=== PATIENT | female | born 1980 | race Caucasian/White ===

== ENCOUNTER → 2016-08-27 | Outpatient (CLI) | payer OTHER ==
[~2016-08-27] MED LIST: AMOXICILLIN500 MG PO; B12,B-12,B 12500 MC1 PO; BUSPAR5 MG PO; CIPROFLOXACIN500 MG PO; CLINDAMYCIN HC300 MG PO; CYCLOBENZAPRINE10 MG PO; CYCLOBENZAPRINE5 M3 PO; DARVOCET N 1001 TAB PO; DIFLUCAN150 MG PO; FLAGYL500 MG PO; IBU800 M1 PO; KEFLEX500 M1 PO; LAMOTRIGINE100 MG PO; LIDEX0.05% T; MOOD STABILIZER; MOTRIN600 MG PO; MOTRIN800 MG PO; NAPROSYN500 MG PO; NORCO 325 MG-51 TAB PO; PARAFON FORTE500 MG PO; PERCOCET 325 MG1 TA2 PO; PHENERGAN W/DM120 ML PO; PREDNICOT10 MG PO; PREDNICOT20 MG PO; SEPTRA DS 800 M1 TAB PO; TESSALON PERLE100 M1 PO; TYLENOL W/CODEI1 TA7 PO; VICODIN HP 6601 TAB PO; VISTARIL25 M1 PO; ZANTAC150 MG PO; ZITHROMAX Z PA250 MG PO; ZOFRAN4 MG PO; ZOLOFT100 MG PO
== END | disposition home or self-care (01) ==
LOC: US 17:59
DX: K76.0 Fatty (change of) liver, not elsewhere classified (principal)

== ENCOUNTER 2019-11-24 12:42 | Emergency (ER) | payer OTHER ==
[~2019-11-24] VITALS: Ht 157.4 cm; Wt 127.0 kg
[2019-11-24] MEDS ORDERED: Motrin,Rufen800 MG PO (16:16)
[2019-11-24] MEDS ORDERED: CYCLOBENZAPRINE5 M3 PO (16:16)
== END 2019-11-24 16:19 | disposition home or self-care (01) ==
LOC: ED 12:42
DX: M54.16 Radiculopathy, lumbar region (principal); Z88.8 Allergy status to other drugs, medicaments and biological substances; Z79.899 Other long term (current) drug therapy

== ENCOUNTER 2020-11-20 02:02 | Emergency (ER) | payer OTHER ==
[~2020-11-20 02:02] MED LIST changes: +Motrin,Rufen800 MG PO
== END 2020-11-20 04:09 | disposition home or self-care (01) ==
LOC: ED 02:02
DX: I83.891 Varicose veins of right lower extremity with other complications (principal); Z79.2 Long term (current) use of antibiotics; Z88.1 Allergy status to other antibiotic agents; Z79.899 Other long term (current) drug therapy; Z90.711 Acquired absence of uterus with remaining cervical stump; Z98.890 Other specified postprocedural states; Z87.891 Personal history of nicotine dependence

== ENCOUNTER 2021-05-16 21:23 | Emergency (ER) | payer OTHER ==
[~2021-05-16] VITALS: Ht 160 cm
[2021-05-16 22:21] LABS: BASO % 0.5 % (0.0-1.0); EOS # 0.4 10*3/uL (0.0-0.4); EOS % 5.7 % (1.0-4.0); HEMATOCRIT 40.1 % (37.0-47.0); LYMPH # 2.9 10*3/uL (1.3-4.4); LYMPH % 44.2 % (27.0-41.0); MEAN CELL VOLUME 90.3 fl (81.0-99.0); MEAN CORPUSCULAR HGB CONC 33.2 g/dl (33.0-37.0); MEAN PLATELET VOLUME 9.1 fl (9.6-12.3); MONO # 0.5 10*3/uL (0.1-1.0); MONO % 7.2 % (3.0-9.0); NEUT # 2.8 10*3/uL (2.3-7.9); NEUT % 42.2 % (47.0-73.0); PLATELET COUNT AUTOMATED 311 10*3/uL (130-400); RED BLOOD COUNT 4.44 10*6/uL (4.10-5.10); RED CELL DISTRI WIDTH 12.9 % (0-14.5); WHITE BLOOD COUNT 6.5 10*3/uL (4.8-10.8)
[2021-05-16 23:05] LABS: ALBUMIN 2.9 gm/dl (3.1-4.5); CREATININE 2.33 mg/dL (0.55-1.02); POTASSIUM 3.1 mmol/L (3.5-5.1); TOTAL PROTEIN 7.3 gm/dL (6.4-8.2)
== END 2021-05-16 23:10 | disposition home or self-care (01) ==
LOC: ED 21:23
PROVIDERS: Physician Assistant
DX: J12.9 Viral pneumonia, unspecified (principal); Z20.822 Contact with and (suspected) exposure to COVID-19; Z88.1 Allergy status to other antibiotic agents; Z79.899 Other long term (current) drug therapy; Z79.2 Long term (current) use of antibiotics; Z90.710 Acquired absence of both cervix and uterus; Z98.890 Other specified postprocedural states; Z87.891 Personal history of nicotine dependence

== ENCOUNTER 2021-07-25 22:34 | Emergency (ER) | payer OTHER ==
[~2021-07-25] VITALS: Ht 160 cm; Wt 117.9 kg
[2021-07-25] MEDS ORDERED: ABILIFY5 MG PO (22:50)
[2021-07-25] MEDS ORDERED: LEXAPRO10 MG PO (22:50)
== END 2021-07-26 00:17 | disposition home or self-care (01) ==
LOC: ED 22:34
DX: I83.018 Varicose veins of right lower extremity with ulcer other part of lower leg (principal); Z87.891 Personal history of nicotine dependence; Z98.890 Other specified postprocedural states; Z90.710 Acquired absence of both cervix and uterus; Z79.899 Other long term (current) drug therapy; Z88.1 Allergy status to other antibiotic agents

== ENCOUNTER 2021-08-01 09:01 | Emergency (ER) | payer OTHER ==
[~2021-08-01 09:01] MED LIST changes: +ABILIFY5 MG PO; +LEXAPRO10 MG PO
== END 2021-08-01 09:32 | disposition home or self-care (01) ==
LOC: ED 09:01
DX: I83.018 Varicose veins of right lower extremity with ulcer other part of lower leg (principal); Z87.891 Personal history of nicotine dependence; Z90.710 Acquired absence of both cervix and uterus; Z98.890 Other specified postprocedural states; Z79.899 Other long term (current) drug therapy; Z88.1 Allergy status to other antibiotic agents

== ENCOUNTER 2023-03-25 20:08 | Emergency (ER) | payer OTHER ==
[~2023-03-25] VITALS: Ht 160 cm; Wt 127.0 kg
== END 2023-03-25 22:09 | disposition home or self-care (01) ==
LOC: ED 20:08
DX: M79.671 Pain in right foot (principal); F41.9 Anxiety disorder, unspecified; F31.9 Bipolar disorder, unspecified; Z88.8 Allergy status to other drugs, medicaments and biological substances; Z90.710 Acquired absence of both cervix and uterus; Z98.890 Other specified postprocedural states; Z87.891 Personal history of nicotine dependence